=== PATIENT | female | born 1990 | race Caucasian/White ===

== ENCOUNTER 2018-12-27 05:10 | Emergency (ER) | payer MEDICAID ==
[~2018-12-27] VITALS: Ht 152.4 cm; Wt 160.0 kg
[2018-12-27] MEDS ORDERED: ACETAMINOPHEN 500MG TABLET PO ONE (05:45)
[2018-12-27] MEDS ORDERED: IBUPROFEN 800MG TABLET PO ONE (05:45)
[2018-12-27 06:38] VITALS: BP 136/81
== END 2018-12-27 06:30 | disposition home or self-care (01) ==
LOC: ER 05:10
DX: H60.91 Unspecified otitis externa, right ear (principal)
CPT/HCPCS: 99283

== ENCOUNTER 2018-12-30 05:24 | Emergency (ER) | payer MEDICAID ==
[~2018-12-30] VITALS: Ht 152.4 cm; Wt 137.0 kg
[2018-12-30 05:33] VITALS: BP 137/98
== END 2018-12-30 07:31 | disposition home or self-care (01) ==
LOC: ER 05:59
DX: H66.93 Otitis media, unspecified, bilateral (principal); H60.93 Unspecified otitis externa, bilateral; R03.0 Elevated blood-pressure reading, without diagnosis of hypertension
CPT/HCPCS: 99281

== ENCOUNTER 2019-02-23 21:55 | Emergency (ER) | payer MEDICAID ==
[~2019-02-23] VITALS: Ht 152.4 cm; Wt 137.0 kg
[2019-02-23] MEDS ORDERED: KETOROLAC 60MG/2ML VIAL IM STA (23:16)
[2019-02-23] MEDS ORDERED: DEXAMETHASONE 10 MG/ML VIAL IM ONE (23:30)
[2019-02-23 23:36] LABS: BASOPHILS % 0.5 % (0.0-2.0); EOSINOPHILS % 1.7 % (0.0-5.0); HEMATOCRIT. 37.3 % (36.0-48.0); HEMOGLOBIN. 12.2 g/dL (12.0-16.0); LYMPHOCYTES % 31.3 % (20.0-50.0); MEAN CORPUSCULAR HEMOGLOBIN 26.6 pg (28.0-32.0); MEAN CORPUSCULAR VOLUME 81.1 fL (81.0-99.0); MEAN PLATELET VOLUME 8.3 fl (7.4-10.4); MONOCYTES % 5.5 % (2.0-8.0); PLATELET 270 x1000/uL (130-400); RED BLOOD CELL COUNT 4.59 mill/uL (4.2-5.4)
[2019-02-23 23:42] LABS: CHLORIDE 109 mEq/L (98-107)
[2019-02-23 23:45] LABS: HCG SCREEN NEGATIVE
[2019-02-24 02:00] VITALS: BP 122/72
== END 2019-02-24 02:30 | disposition home or self-care (01) ==
LOC: ER 22:16
DX: M54.12 Radiculopathy, cervical region (principal); R53.1 Weakness
CPT/HCPCS: 36415; 71045; 80053; 84484; 84703; 85025; 93005; 96372; 99284; J1100; J1885

== ENCOUNTER 2023-08-28 23:45 | Emergency (ER) | payer MEDICAID ==
[~2023-08-28] VITALS: Ht 149.9 cm; Wt 127.0 kg
[2023-08-29 00:10] VITALS: BP 152/117; PULSE 113; RESP 20; TEMP 99.3; O2SAT 97
== END 2023-08-29 01:33 | disposition left against medical advice (07) ==
LOC: ER 23:45
DX: M54.50 Low back pain, unspecified (principal); Z53.21 Procedure and treatment not carried out due to patient leaving prior to being seen by health care provider